=== PATIENT | female | born 1945 | race Caucasian/White ===

== ENCOUNTER 2020-11-14 12:35 | Outpatient (REF) | payer OTHER, SELFPAY ==
--- NOTE | 2020-11-27 09:10 | MHC.AU.AEV ---
Adult Audiological Evaluation Date of Visit: 11/14/20 Reason for Appointment: History of hearing loss. Patient arrives to determine if there has been a change in hearing. Hearing Handicap Inventory Does a hearing problem cause you to feel embarrassed when meeting new people?: No Does a hearing problem cause you to feel frustrated when talking to members of your family?: Yes Do you have difficulty when someone speaks in a whisper?: Yes Do you feel handicapped by a hearing problem?: Yes Does a hearing problem cause you difficulty when visiting friends, relatives, or neighbors?: Yes Does a hearing problem cause you to attend bahai service services less often than you would like?: No Does a hearing problem cause you to have arguments with family members?: No Does a hearing problem cause you difficulty when listening to TV or radio?: Yes Do you feel that any difficult with your hearing limits or hampers your personal or social life?: Yes Does a hearing problem cause you difficulty when in a restaurants with relatives or friends?: Sometimes HHIE SCORE: 26 Based on HHIE score, patient has: Severe perceived hearing handicap Ear History: Ear Deformity: None Reported Recent Ear Drainage: None Reported Recent Ear Pain: None Reported Family History of Hearing Loss?: Yes: Father Recent Ear Infections: None Reported Ear Infections in Childhood: None Reported History of Ear Wax Buildup: None Reported Previous Ear Surgery: None Reported Bothersome Tinnitus/Ringing/Noises in Ears: None Reported Ear used on the phone: Right Ear Blocked/Full Sensation in Ear(s): None Reported History of occupational noise exposure?: No History: No Medical History: Medical History: Migraines, Seizure Disorder, Measles/Mumps when younger Medication List: Keppra ER Hearing Instrument History- Right Ear: Gastroenterology Technician: Mapbar Model: Z Series i110 Hearing Instrument History- Left Ear: Gastroenterology Technician: Ishmael Model: Z Series i110 Otoscopy: Right Ear: Partially occluded with cerumen Left Ear: Partially occluded with cerumen Tympanometry: Tympanometry performed due to: To assess integrity of the middle ear system Right Ear: Negative Middle Ear Pressure (Type C) Left Ear: Non-compliant Middle Ear System (Type B) Hearing Evaluation: Transducer(s) Used: Circumaural Headphones Method: Conventional Audiometry Stimuli Used: Pure Tones Right Ear: Description of Hearing: Moderate rising to mild and sloping to moderate sensorineural hearing loss Left Ear: Description of Hearing: Moderate rising to mild and sloping to moderate sensorineural hearing loss Speech Recognition Threshold (SRT): Method Used: Recorded Lists Stimuli Used: Spondee Words Right Ear: 35 dBHL Left Ear: 35 dBHL Word Discrimination: Method: Recorded Lists Word Lists Used:: W-22 Right Ear: 96% at 70 dBHL Left Ear: 100% at 70 dBHL Most Comfortable Level (MCL): Right Ear: 70 dBHL Left Ear: 70 dBHL Comparison: Compared to the most recent evaluation: Thresholds have decreased bilaterally. Recommendations: Audiological re-evaluation in one year. Patient's previous hearing aids are no longer functional. She is interested in new amplification. Options were discussed. A pair of [employer] AI 2400 MIRTHA 312 in color Thong was selected. Patient contacted her insurance to determine if she could be eligible for reimbursement. She was told that she could be reimbursed, but she would need to submit documentation such as the audiogram and medical clearance first. Once she receives the go-ahead from her insurance, the hearing aids will be ordered and a hearing aid fitting can be scheduled. Diagnosis: Primary Diagnosis: H90.3 Bilateral Sensorineural Hearing Loss Signature: Provider: Aron Chow, CCC-A
--- NOTE | 2020-11-27 09:12 | MHC.AU.MED ---
Medical Clearance for Hearing Instrumentation Date: 11/14/20 Patient Name: Eugenie Madrigal Date of : 1945 Referring Provider: Akhil Hickey MD We have seen your patient on 11/14/20 and have determined that they are a candidate for amplification (See accompanying report). Specifically, they would benefit from: Hearing aid use in both ears There is a statute that addresses Medical Evaluation Requirements prior to fitting a patient with a hearing aid. According to [place] statute [facility] CMR:6.03(1), (a) General. Except as provided in 265 CMR 6.03(1)(b), a utility tech shall not sell a hearing aid unless the prospective user has presented to the utility tech a written statement signed by a licensed physician that states that the patient's hearing loss has been medically evaluated and the patient may be considered a candidate for a hearing aid. The medical evaluation must have taken place within the preceding six months. Please note: Due to the [place] Statute referenced above, we cannot accept a signature other than that of a licensed physician. GYN PHYSICIAN and PA signatures cannot be accepted. I am in agreement with the above recommendation. There is no medical contraindication for hearing instrumentation. Physician Signature Date Physician Name (Printed)
== END 2020-11-14 12:36 | disposition home or self-care (01) ==
LOC: HO.SH 12:35
PROVIDERS: Visit Provider Internal Medicine
DX: H90.3 Sensorineural hearing loss, bilateral (principal)
CPT/HCPCS: 92557; 92567

== ENCOUNTER 2021-01-16 12:44 | Outpatient (REF) | payer SELFPAY ==
--- NOTE | 2021-01-17 14:17 | MHC.AU.HFA ---
Hearing Instrument Fitting- Adult- Binaural Date of Visit: 01/17/21 Hearing Instruments Dispensed: Right Ear: Welder Tack: Leadjini Model: AddFleetV AI 2400 MIRTHA 312 Serial Number: [id number] Repair Warranty: 04/08/2024 Loss and Damage Warranty: 04/08/2024 Battery Size: 312 Compensation And Benefits Administrator: Size 1-60 Gain Type of Dome: 6mm Occluded Comfort Randolph Type of Wax Guard: HearClear Left Ear: Welder Tack: Leadjini Model: EVOLV AI 2400 MIRTHA 312 Serial Number: [id number] Repair Warranty: 04/08/2024 Loss and Damage Warranty: 04/08/2024 Battery Size: 312 Compensation And Benefits Administrator: Size 1-60 Gain Type of Dome: 6mm Occluded Comfort Randolph Type of Wax Guard: HearClear Summary of Fitting: Feedback programming development project manager run. Experience programming development project manager set to 3. Verifit performed and levels adjusted to better reach targets. Patient was pleased with the sound of the instruments. The hearing aids were paired to her phone. Tried to download the [employer] ke, but patient could not recall her Apple password. She will try downloading it at home. Hearing aid care and maintenance were discussed and practiced. Recommendations: A hearing instrument follow-up was scheduled. Patient paid full $5200 today. She was given an itemized receipt to submit to her insurance. Diagnosis Code(s): Primary Diagnosis: H90.3 Bilateral Sensorineural Hearing Loss Signature: Provider: Aron Chow, CCC-A
== END 2021-01-16 12:45 | disposition home or self-care (01) ==
LOC: HO.HAP 12:44
PROVIDERS: Visit Provider Internal Medicine
DX: Z46.1 Encounter for fitting and adjustment of hearing aid (principal); H90.3 Sensorineural hearing loss, bilateral
CPT/HCPCS: 92591; V5261

== ENCOUNTER 2022-10-24 10:59 | Outpatient (AMB) | payer OTHER, SELFPAY ==
--- NOTE | 2022-10-24 11:16 | MHC.OFFWIV ---
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 Intake Note: pt is here for covid symptoms, fever, cough, sore throat, exhaustion, states she just came from [facility] and at home covid test was positive Patient Tobacco Use Status: Former Tobacco user Allergies No Known Allergies Allergy (Verified 10/24/22 11:22) Do you need a note to return to daycare/school/sports/work: No HPI 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 She tested positive on home rapid COVID test. had started with similar symptoms today. She reports no underlying immuno compromising issues and no pertinent past medical history. She denies shortness of breath, chest pain, dizziness or weakness, nausea vomiting or diarrhea, abdominal pain, dysuria, loss of sense of taste or smell, headache, sinus pressure, ear pain, or other significant associated symptoms. [facility] Social History Patient Tobacco Use Status: Former Tobacco user Review of Systems Const All systems reviewed & are unremarkable except as noted in HPI and below Physical Exam Vital Signs: Last Vital Signs Temp 98.4 F 10/24/22 11:23 Pulse 76 10/24/22 11:23 BP 122/74 10/24/22 11:23 Pulse Ox 97 10/24/22 11:23 Const General: cooperative, comfortable, alert, awake, Physically active and well groomed; No diaphoretic, intoxicated appearing or poor hygiene Nutritional Appearance: average body habitus Orientation/consciousness: oriented to person Limitations: no limitations Chest Chest palpation & inspection: normal palpation of entire chest wall Resp Effort & Inspection: normal respiratory effort, able to speak in complete sentences, no audible wheezes, no cough, no grunting, not labored, no nasal flaring, no retractions and symmetric chest movement Auscultation: clear to auscultation bilaterally, no crackles, no rales, no rhonchi, no wheezes, lung sounds not diminished and No rub present Cardio Palpation: normal PMI Rate: regular rate Rhythm: regular rhythm Heart sounds: S1 normal heart sound present and S2 normal heart sound present Skin Other: Good color, warm and dry Neuro General: oriented to person Psych Appearance: grossly normal Mental Status: mental status grossly normal Speech and movement: Normal speech and movement present Affect: normal affect Attitude: cooperative Thought process: Normal thought process present Insight: Good insight present (Psych) Judgement: Good judgement present (Psych) Assessment & Plan Assessment & Plan (1) COVID: Code(s): U07.1 - COVID-19 Plan: Patient positive on home COVID testing today, PCR testing not available and not needed. Patient reports no high-risk associated past medical history, other than her advanced age. She requests to start Paxlovid antiviral therapy, as she is on day 2 of symptoms she would still be a candidate. We reviewed side effects and risks of taking the antiviral, which are present but low due to her age, and include but not limited to abdominal pain, nausea and vomiting and diarrhea, and fatigue. She had no cough or respiratory distress on evaluation today, and no shortness of breath or chest pain reported, so chest x-ray not performed today. She was advised on supportive measures, and she will follow up if symptoms persist worsen. She knows to go to the emergency department with worrisome symptoms. She was advised on CDC guidance for quarantine period. Medications: New nirmatrelvir-ritonavir 300 mg (150 mg x 2)-100 mg (Paxlovid) take TWO 150 mg tablets of nirmatrelvir with ONE 100 mg tablet of ritonavir twice daily for 5 days PO 30 ea 0RF Coding Level of Care Code New Pt Level 4 (77251) Diagnoses COVID U07.1
[2022-10-24 11:23] VITALS: BP 122/74; PULSE 76; TEMP 36.9; O2SAT 97
== END 2022-10-24 12:48 | disposition home or self-care (01) ==
PROVIDERS: PCP Internal Medicine; Visit Provider Physician Assistant Medical
DX: U07.1 COVID-19 (principal)
CPT/HCPCS: 99204

== ENCOUNTER 2023-03-03 07:57 | Outpatient (REF) | payer SELFPAY ==
--- NOTE | 2023-03-03 08:59 | MHC.AU.HA3 ---
Hearing Instrument Follow-Up- Binaural Date of Visit: 03/03/23 Right Ear: Make, Model, Color, Serial Number: [id number] Clinical Pharmacy Specialist Repair Warranty: 04/08/2024 Clinical Pharmacy Specialist Loss and Damage Warranty: 04/08/2024 [facility] Service Plan: Battery Size: 312 Photography Editor/Slim Tube: Size 1-60 Gain Earmold/Dome/CShell/SlimTip: Type of Wax Guard: HearClear Left Ear: Make, Model, Color, Serial Number: [id number] Clinical Pharmacy Specialist Repair Warranty: 04/08/2024 Clinical Pharmacy Specialist Loss and Damage Warranty: 04/08/2024 [facility] Service Plan: Battery Size: 312 Photography Editor/Slim Tube: Size 1-60 Gain Earmold/Dome/CShell/SlimTip: Type of Wax Guard: HearClear Follow-Up Summary: Eugenie is here for a hearing aid adjustment, reporting difficulty hearing in groups/noisy environments and in rooms with poor acoustics such as her living room with high ceilings. She also finds some of her computers difficult to hear. Cleaned aids, listening check ok after cleaning. Otoscopy shows nonoccluding wax right ear, clear left ear. Discussed using wax removal drops at home. Increased noise management and transient management, decreased lows 1 click and increased mids 1 click. Changed VC increments to 2dB as she feels adjusting the volume makes too big of a change. Recommended returning for an updated audiogram before making more adjustments. She is aware she will need a doctors order. Recommendations: Recommendations: Return for updated hearing test. Diagnosis Code(s): Primary Diagnosis: H90.3 Bilateral Sensorineural Hearing Loss Signature: Provider: Aron De Leon, [facility]
== END 2023-03-03 07:58 | disposition home or self-care (01) ==
LOC: HO.HAP 07:57
PROVIDERS: Visit Provider Internal Medicine
DX: Z13.89 Encounter for screening for other disorder (principal)

== ENCOUNTER 2024-09-20 08:23 | Outpatient (REF) | payer SELFPAY ==
--- NOTE | 2024-09-20 09:29 | MHC.AU.HA3 ---
Hearing Instrument Follow-Up- Binaural Date of Visit: 09/20/24 Right Ear: Tony, Model, Color, Serial Number: [id number] Associate Vice President Repair Warranty: 04/08/2024 Associate Vice President Loss and Damage Warranty: 04/08/2024 [facility] Service Plan: 04/08/2024 Battery Size: 312 Manager Semiconductor/Slim Tube: Size 1-60 Gain Earmold/Dome/CShell/SlimTip:6mm occluded Type of Wax Guard: HearClear Dispensed By: [facility] Date of Fittin01/16/21 Left Ear: Tony, Model, Color, Serial Number: [id number] Associate Vice President Repair Warranty: 04/08/2024 Associate Vice President Loss and Damage Warranty: 04/08/2024 [facility] Service Plan: 04/08/2024 Battery Size: 312 Manager Semiconductor/Slim Tube: Size 2-60 Gain Earmold/Dome/CShell/SlimTip: 6mm occluded Type of Wax Guard: HearClear Dispensed By: [facility] Date of Fittin01/16/21 Follow-Up Summary: Eugenie is seen reporting intermittent buzzing from left hearing aid. Also notes general difficulty, feeling that she does not hear well with the hearing aids. She was seen for adjustment Feb 2023 at which time recommended updated audiogram which has not been done to date. Noted the receivers do not appear well inserted in canals upon arrival. Notably narrow ear canals. Eugenie notes longstanding difficulty with insertion. Cleaned aids, replaced domes and wax guards, vacuumed under gurwinder covers. Found static to resolve with new technical training instructor left. Did not have size 1 in stock. Found size 2 to fit well, appears snug in the ear and not coming up over the pinna. Eugenie practiced insertion and tested head movements and the hearing aid was secure. Ordering size 1 for stock, advised Eugenie she can return to swap out receivers if any fit issue arises. Recommended updated audiogram before making gain adjustments as hearing has not been evaluated since 2020. Briefly discussed new amplification options as Eugenie notes insurance eligibility for hearing aids every 4 years. Suggested custom molds for better fit and easier insertion. Recommendations: Recommendations: Contact PCP for PO for updated audiogram. Diagnosis Code(s): Primary Diagnosis: H90.3 Bilateral Sensorineural Hearing Loss Signature: Provider: Clifford Casillas, CCC-A
== END 2024-09-20 08:24 | disposition home or self-care (01) ==
LOC: HO.HAP 08:23
PROVIDERS: Visit Provider Internal Medicine
DX: Z46.1 Encounter for fitting and adjustment of hearing aid (principal); H90.3 Sensorineural hearing loss, bilateral
CPT/HCPCS: V5299